=== PATIENT | female | born 1970 | race Caucasian/White ===

== ENCOUNTER → 2020-07-24 | Outpatient (CLI) | payer BC ==
--- NOTE | 2020-07-28 15:20 | RAD ---
DATE: 07/24/2020 2:43 PM EXAM: MAMMO MATT SCREENING BILATERAL HISTORY: Screening COMPARISON: 06/15/2018 Bilateral CC and MLO views of the breasts were performed. Bilateral breast tomosynthesis was performed in CC and MLO projections. This study was interpreted with the benefit of Computerized Aided Detection (CAD). FINDINGS: Breast Density: HETERO The breast parenchyma Is heterogeneously dense, which could reduce sensitivity of mammography. Breast parenchyma level C No suspicious masses, microcalcifications or architectural distortion is present to suggest malignancy in either breast. The visualized axillae are unremarkable. IMPRESSION: No mammographic evidence of malignancy. BI-RADS CATEGORY: 1 NEGATIVE RECOMMENDED FOLLOW-UP: 12M 12 MONTH FOLLOW-UP Annual screening mammography is recommended, unless clinically indicated sooner based on symptoms or change in physical exam. PQRS compliance statement: Patient information was entered into a reminder system with a target due date for the next mammogram. Mammography is a sensitive method for finding small breast cancers, but it does not detect them all and is not a substitute for careful clinical examination. A negative mammogram does not negate a clinically suspicious finding and should not result in delay in biopsying a clinically suspicious abnormality. "Our facility is accredited by the [employer] Mammography Program."
== END ==
LOC: MAMMO 14:37
PROVIDERS: ATTEND Internal Medicine
DX: Z12.31 Encounter for screening mammogram for malignant neoplasm of breast (principal); N64.89 Other specified disorders of breast
CPT/HCPCS: 77063; 77067

== ENCOUNTER → 2021-10-15 | Outpatient (CLI) | payer BC ==
--- NOTE | 2021-10-15 16:38 | RAD ---
Bilateral digital screening 2-D and 3-D (tomosynthesis) mammogram: Reason for examination: Routine screening. Comparison is made to previous mammograms from 07/24/2020 and 06/15/2018. Bilateral mammograms in CC and oblique projections were obtained with 2-D imaging and 3-D tomosynthes is imaging and reviewed on the workstation. Interpretation was made with the benefit of CAD. Findings: Breast density: Category C. The breasts are heterogeneously dense, which may obscure small masses. There are no new suspicious masses, malignant appearing calcifications or architectural distortion. Impression: No evidence of malignancy. ASSESSMENT: BI-RADS 1. Negative. Recommendations: Routine screening mammograms. This patient's information has been entered into a reminder system for the patient to be notified wit h the results of her examination and a target date for the next mammogram. Your patient's mammogram demonstrates that she has dense breast tissue (breast density category C or D), which could hide abnormalities, and if she has other risk factors for breast cancer that have bee n identified, she might benefit from supplemental screening tests that may be suggested by you as her ordering physician. Dense breast tissue, in and of itself, is a relatively common condition. Therefo re, this information is not provided to cause undue concern, but rather to raise your awareness and t o promote discussion with your patient regarding the presence of other risk factors, in addition to d ense breast tissue. Electronically signed by: Radha Flores MD (10/15/2021 4:36 PM) [id number]
== END ==
LOC: MAMMO 11:02
PROVIDERS: ATTEND Internal Medicine
DX: Z12.31 Encounter for screening mammogram for malignant neoplasm of breast (principal)
CPT/HCPCS: 77063; 77067

== ENCOUNTER → 2022-01-19 | Outpatient (CLI) | payer BC ==
--- NOTE | 2022-01-19 14:16 | RAD ---
EXAMINATION: CT ABDOMEN+PELVIS WO CLINICAL HISTORY: RIGHT SIDE ABD PAIN, H/O KIDNEY STONES. TECHNIQUE: Imaging of the abdomen and pelvis was performed without intravenous contrast using standar d technique, scanning from just above the dome of the diaphragm to the symphysis pubis. Unenhanced i maging is limited for the evaluation of some intra-abdominal and pelvic pathology. CT Dose Reduction Employed: One or more of the following individualized dose reduction techniques wer e utilized for this examination: 1. Automated exposure control 2. Adjustment of the mA and/or kV ac cording to patient size 3. Use of iterative reconstruction technique. COMPARISON: None FINDINGS: Visualized heart and lungs unremarkable. Cholecystectomy. Liver, pancreas, spleen, and adrenal glands unremarkable. Unenhanced kidneys unremarkable. No evidence of urolithiasis or obstructive uropathy. Mildly filled urinary bladder. Uterus unremarkable. 1.2 cm left ovarian follicle/cyst. Nonspecific ri ght adnexal hypodensity, possibly an ovarian cyst with partially calcified thin septation. No dilated bowel. Minimal sigmoid diverticulosis. Appendix not definitively visualized. Minimal arterial atherosclerotic calcification without aneurysm. Mild thoracolumbar curvature, possibly positional. Mild multilevel thoracolumbar degenerative changes . IMPRESSION: Nonspecific hypodensity in the right adnexa as described, possibly an ovarian cyst or mild hydrosalpi nx. Transvaginal pelvic ultrasound could be obtained for further evaluation as indicated. No urolithiasis or evidence of obstructive uropathy. Electronically signed by: Dinesh Palacio DO (01/19/2022 2:13 PM) [facility]
== END ==
LOC: CT 11:55
PROVIDERS: ATTEND Internal Medicine
DX: N83.202 Unspecified ovarian cyst, left side (principal); M47.815 Spondylosis without myelopathy or radiculopathy, thoracolumbar region; M43.8X5 Other specified deforming dorsopathies, thoracolumbar region; N20.0 Calculus of kidney; Z90.49 Acquired absence of other specified parts of digestive tract
CPT/HCPCS: 74176